=== PATIENT | female | born 1980 | race Caucasian/White ===

== ENCOUNTER 2017-07-14 13:51 | Emergency (ER) | payer MEDICAID ==
[2017-07-14 15:03] LABS: BASOPHILS 0.2 % (0-2); EOSINOPHILS 1.4 % (0-7); HEMATOCRIT 41.6 % (36.0-48.0); HEMOGLOBIN 13.1 g/dL (12-16); IMMATURE GRANULOCYTES 0.1 % (0-5); LYMPHOCYTES 22.4 % (15-50); MCH 26.9 pg (26.0-34.0); MCHC 31.5 g/dL (31.0-37.0); MCV 85.4 fL (80.0-100.0); MEAN PLATELET VOLUME 12.2 fL (7.4-10.4); MONOCYTES 5.1 % (2-11); NEUTROPHILS 70.8 % (40-80); PLATELET COUNT 193 10x3/uL (130-400); RBC 4.87 10x6/uL (4.00-5.40); RDW 13.6 % (11.5-14.5); WBC 8.5 10x3/uL (4.8-10.8)
[2017-07-14 15:15] LABS: MONO NEGATIVE (NEGATIVE)
[2017-07-16 14:19] LABS: EBV - EARLY ANTIGEN AB IGG <9.0 U/mL (0.0-8.9); EBV VIRAL CAPSID AB IGG 32.2 U/mL (0.0-17.9); EBV VIRAL CAPSID AB IGM <36.0 U/mL (0.0-35.9)
== END 2017-07-14 16:15 | disposition home or self-care (01) ==
LOC: D.ER 13:51
PROVIDERS: Emergency Medicine
DX: J04.0 Acute laryngitis (principal)

== ENCOUNTER 2017-07-19 22:23 | Emergency (ER) | payer MEDICAID ==
[2017-07-19 23:13] LABS: BASOPHILS 0.2 % (0-2); EOSINOPHILS 2.4 % (0-7); HEMATOCRIT 39.3 % (36.0-48.0); HEMOGLOBIN 12.5 g/dL (12-16); IMMATURE GRANULOCYTES 0.1 % (0-5); LYMPHOCYTES 26.8 % (15-50); MCH 27.1 pg (26.0-34.0); MCHC 31.8 g/dL (31.0-37.0); MCV 85.1 fL (80.0-100.0); MEAN PLATELET VOLUME 11.8 fL (7.4-10.4); MONOCYTES 6.4 % (2-11); NEUTROPHILS 64.1 % (40-80); PLATELET COUNT 192 10x3/uL (130-400); RBC 4.62 10x6/uL (4.00-5.40); RDW 13.6 % (11.5-14.5); WBC 8.3 10x3/uL (4.8-10.8)
[2017-07-19 23:30] LABS: HCG URINE NEGATIVE (NEGATIVE)
[2017-07-19 23:33] LABS: APPEARANCE HAZY (CLEAR); BILIRUBIN NEGATIVE (NEGATIVE); COLOR YELLOW (YELLOW); GLUCOSE 100 mg/dL (NEGATIVE); KETONE SMALL mg/dL (NEGATIVE); LEUKOCYTE ESTERASE 1+ (NEGATIVE); NITRITE NEGATIVE (NEGATIVE); PROTEIN TRACE mg/dL (NEGATIVE); UDS - AMPHET NEGATIVE QUAL (NEGATIVE); UDS - BARB NEGATIVE QUAL (NEGATIVE); UDS - BENZO NEGATIVE QUAL (NEGATIVE); UDS - COCAINE NEGATIVE QUAL (NEGATIVE); UDS - METH NEGATIVE QUAL (NEGATIVE); UDS - OPIATE POSITIVE QUAL (NEGATIVE); UDS - PCP NEGATIVE QUAL (NEGATIVE); UDS - THC NEGATIVE QUAL (NEGATIVE); UROBILINOGEN NORMAL (NORMAL)
[2017-07-19 23:34] LABS: BACTERIA FEW /hpf (NONE SEEN); MUCUS >1+ /lpf (NONE SEEN); RED CELLS - URINE 25-50 /hpf (0-5)
[2017-07-19 23:36] LABS: ALBUMIN 3.7 g/dL (3.4-5.0); ALKALINE PHOSPHATASE 48 U/L (46-116); ALT (SGPT) 16 U/L (10-68); CALC OSMOLALITY 288 mosm/kg (275-300); CALCIUM 8.1 mg/dL (8.5-10.1); CARBON DIOXIDE 27.3 mmol/L (21.0-32.0); CHLORIDE - SERUM 108 mmol/L (98-107); CREATININE - SERUM 0.8 mg/dL (0.6-1.3); GLUCOSE 158 mg/dL (74-106); LIPASE 148 U/L (73-393); POTASSIUM - SERUM 3.8 mmol/L (3.5-5.1); PROTEIN - SERUM 7.1 g/dL (6.4-8.2); SODIUM 144 mmol/L (136-145); UREA NITROGEN 11 mg/dL (7-18); eGFR NON AFRICAN AMERICAN 85 mL/min (90-120)
== END 2017-07-20 00:45 | disposition home or self-care (01) ==
LOC: D.ER 22:23
PROVIDERS: Emergency Medicine
DX: K59.00 Constipation, unspecified (principal); R10.9 Unspecified abdominal pain; E11.9 Type 2 diabetes mellitus without complications; Z79.4 Long term (current) use of insulin; F17.200 Nicotine dependence, unspecified, uncomplicated

== ENCOUNTER 2018-02-11 10:57 | Outpatient (CLI) | payer MEDICAID | END 2018-02-11 12:38 | LOC: D.OPS 10:57 | DX: K21.9 Gastro-esophageal reflux disease without esophagitis (principal) ==

== ENCOUNTER → 2018-03-03 12:26 | Outpatient (CLI) | payer MEDICAID | END | disposition home or self-care (01) | LOC: D.RAD 02-24 13:00 | DX: R13.10 Dysphagia, unspecified (principal) ==

== ENCOUNTER → 2018-03-25 10:20 | Outpatient (CLI) | payer MEDICAID | END | disposition home or self-care (01) | LOC: D.CT 03-18 11:00 | DX: R13.10 Dysphagia, unspecified (principal); K44.9 Diaphragmatic hernia without obstruction or gangrene ==

== ENCOUNTER 2019-09-12 11:55 | Emergency (ER) | payer MEDICAID ==
[~2019-09-12] VITALS: Ht 162.6 cm; Wt 86.8 kg
[2019-09-12 12:16] VITALS: Ht 162.6 cm; Wt 86.8 kg
[2019-09-12] MEDS ORDERED: GLIPIZIDE10 MG PO (12:19)
[2019-09-12] MEDS ORDERED: GLUCOPHAGE1000 MG PO (12:19)
[2019-09-12] MEDS ORDERED: OMEPRAZOLE20 M1 PO (12:20)
[2019-09-12] MEDS ORDERED: MUSCLE RELAXER (12:20)
[2019-09-12] MEDS ORDERED: LANTUS SOL100 UNIT/1 SC (12:20)
[2019-09-12 15:32] LABS: BASOPHILS 0.3 % (0-2); EOSINOPHILS 1.5 % (0-7); HEMATOCRIT 39.4 % (36.0-48.0); HEMOGLOBIN 12.4 g/dL (12-16); IMMATURE GRANULOCYTES 0.1 % (0-5); LYMPHOCYTES 26.2 % (15-50); MCH 26.1 pg (26.0-34.0); MCHC 31.5 g/dL (31.0-37.0); MCV 82.9 fL (80.0-100.0); MEAN PLATELET VOLUME 12.3 fL (7.4-10.4); MONOCYTES 5.9 % (2-11); PLATELET COUNT 195 10x3/uL (130-400); RBC 4.75 10x6/uL (4.00-5.40); RDW 13.7 % (11.5-14.5); WBC 6.8 10x3/uL (4.8-10.8)
[2019-09-12 15:45] LABS: ALBUMIN 3.4 g/dL (3.4-5.0); ALKALINE PHOSPHATASE 97 U/L (46-116); ALT (SGPT) 10 U/L (10-68); CALC OSMOLALITY 281 mosm/kg (275-300); CALCIUM 7.7 mg/dL (8.5-10.1); CARBON DIOXIDE 26.7 mmol/L (21.0-32.0); CHLORIDE - SERUM 103 mmol/L (98-107); CREATININE - SERUM 0.8 mg/dL (0.6-1.3); GLUCOSE 195 mg/dL (74-106); POTASSIUM - SERUM 4.2 mmol/L (3.5-5.1); PROTEIN - SERUM 7.3 g/dL (6.4-8.2); SODIUM 139 mmol/L (136-145); UREA NITROGEN 10 mg/dL (7-18); eGFR NON AFRICAN AMERICAN 84 mL/min (90-120)
[2019-09-12 15:48] LABS: C-REACTIVE PROTEIN < 0.2 mg/dL (0.0-0.9)
[2019-09-12] MEDS ORDERED: GABAPENTIN100 MG PO (16:11)
[2019-09-12 16:49] VITALS: BP 132/78
== END 2019-09-12 16:50 | disposition home or self-care (01) ==
LOC: D.ER 11:55
PROVIDERS: Family Medicine
DX: E11.40 Type 2 diabetes mellitus with diabetic neuropathy, unspecified (principal); E11.65 Type 2 diabetes mellitus with hyperglycemia

== ENCOUNTER 2019-12-15 17:49 | Emergency (ER) | payer MEDICAID ==
[~2019-12-15] VITALS: Ht 162.6 cm; Wt 83.9 kg
[~2019-12-15 17:49] MED LIST: GABAPENTIN100 MG PO; GLIPIZIDE10 MG PO; GLUCOPHAGE1000 MG PO; LANTUS SOL100 UNIT/1 SC; MUSCLE RELAXER; OMEPRAZOLE20 M1 PO
[2019-12-15 18:03] VITALS: Ht 162.6 cm; Wt 83.9 kg
[2019-12-15 18:47] LABS: BASOPHILS 0.3 % (0-2); EOSINOPHILS 1.4 % (0-7); HEMATOCRIT 41.4 % (36.0-48.0); IMMATURE GRANULOCYTES 0.3 % (0-5); LYMPHOCYTES 25.8 % (15-50); MCH 25.6 pg (26.0-34.0); MCHC 31.4 g/dL (31.0-37.0); MCV 81.7 fL (80.0-100.0); MEAN PLATELET VOLUME 11.8 fL (7.4-10.4); MONOCYTES 5.4 % (2-11); NEUTROPHILS 66.8 % (40-80); PLATELET COUNT 190 10x3/uL (130-400); RBC 5.07 10x6/uL (4.00-5.40); RDW 14.1 % (11.5-14.5)
[2019-12-15 18:58] LABS: APPEARANCE CLEAR (CLEAR); BILIRUBIN NEGATIVE (NEGATIVE); COLOR YELLOW (YELLOW); GLUCOSE 1000 mg/dL (NEGATIVE); KETONE NEGATIVE (NEGATIVE); NITRITE NEGATIVE (NEGATIVE); PROTEIN NEGATIVE (NEGATIVE); UROBILINOGEN NORMAL (NORMAL)
[2019-12-15 19:12] LABS: CALC OSMOLALITY 280 mosm/kg (275-300); CARBON DIOXIDE 25.9 mmol/L (21.0-32.0); CHLORIDE - SERUM 99 mmol/L (98-107); CREATININE - SERUM 0.9 mg/dL (0.6-1.3); GLUCOSE 337 mg/dL (74-106); POTASSIUM - SERUM 3.8 mmol/L (3.5-5.1); SODIUM 135 mmol/L (136-145); UREA NITROGEN 8 mg/dL (7-18); eGFR NON AFRICAN AMERICAN 73 mL/min (90-120)
[2019-12-15 19:21] LABS: ALBUMIN 3.6 g/dL (3.4-5.0); ALKALINE PHOSPHATASE 112 U/L (46-116); ALT (SGPT) 13 U/L (10-68); AMYLASE - SERUM 31 U/L (25-115); BILIRUBIN - TOTAL 0.19 mg/dL (0.2-1.3); LIPASE 101 U/L (73-393); PROTEIN - SERUM 7.7 g/dL (6.4-8.2)
[2019-12-15 19:23] LABS: TROPONIN-I < 0.017 ng/mL (0.000-0.060)
[2019-12-15 21:30] VITALS: BP 119/79
== END 2019-12-15 21:31 | disposition home or self-care (01) ==
LOC: D.ER 17:49
PROVIDERS: Family Medicine
DX: R10.13 Epigastric pain (principal); R73.9 Hyperglycemia, unspecified; E87.1 Hypo-osmolality and hyponatremia; R94.5 Abnormal results of liver function studies; I10 Essential (primary) hypertension; E11.40 Type 2 diabetes mellitus with diabetic neuropathy, unspecified; Z79.4 Long term (current) use of insulin; Z79.84 Long term (current) use of oral hypoglycemic drugs

== ENCOUNTER 2019-12-17 15:01 | Emergency (ER) | payer MEDICAID ==
[~2019-12-17] VITALS: Ht 162.6 cm; Wt 84.1 kg
[2019-12-17 15:04] VITALS: BP 113/64; Ht 162.6 cm; Wt 84.1 kg
[2019-12-17 15:30] LABS: BASOPHILS 0.3 % (0-2); EOSINOPHILS 1.3 % (0-7); HEMATOCRIT 40.5 % (36.0-48.0); HEMOGLOBIN 12.6 g/dL (12-16); IMMATURE GRANULOCYTES 0.2 % (0-5); LYMPHOCYTES 25.3 % (15-50); MCH 25.9 pg (26.0-34.0); MCHC 31.1 g/dL (31.0-37.0); MCV 83.3 fL (80.0-100.0); MEAN PLATELET VOLUME 12.4 fL (7.4-10.4); MONOCYTES 5.5 % (2-11); NEUTROPHILS 67.4 % (40-80); PLATELET COUNT 200 10x3/uL (130-400); RBC 4.86 10x6/uL (4.00-5.40); RDW 14.1 % (11.5-14.5); WBC 6.4 10x3/uL (4.8-10.8)
[2019-12-17 15:38] LABS: CARBON DIOXIDE 25.1 mmol/L (21.0-32.0); CREATININE - SERUM 0.9 mg/dL (0.6-1.3); POTASSIUM - SERUM 4.1 mmol/L (3.5-5.1)
[2019-12-17 15:44] LABS: ALBUMIN 3.4 g/dL (3.4-5.0); BILIRUBIN - TOTAL 0.21 mg/dL (0.2-1.3); PROTEIN - SERUM 7.4 g/dL (6.4-8.2)
[2019-12-17 18:30] LABS: APPEARANCE CLEAR (CLEAR); BILIRUBIN NEGATIVE (NEGATIVE); COLOR YELLOW (YELLOW); GLUCOSE 500 mg/dL (NEGATIVE); KETONE SMALL mg/dL (NEGATIVE); NITRITE NEGATIVE (NEGATIVE); PROTEIN NEGATIVE (NEGATIVE); UROBILINOGEN NORMAL (NORMAL)
[2019-12-17] MEDS ORDERED: VOLTAREN75 MG PO (20:26)
== END 2019-12-17 20:40 | disposition home or self-care (01) ==
LOC: D.ER 15:01
PROVIDERS: Emergency Medicine
DX: M54.16 Radiculopathy, lumbar region (principal); I10 Essential (primary) hypertension; E11.9 Type 2 diabetes mellitus without complications; Z79.4 Long term (current) use of insulin; M54.9 Dorsalgia, unspecified; K21.9 Gastro-esophageal reflux disease without esophagitis